=== PATIENT | male | born 1945 | race Caucasian/White ===

== ENCOUNTER → 2017-10-26 | Outpatient (CLI) | payer OTHER | LOC: BMCIMAGING 13:21 | PROVIDERS: ATTEND Internal Medicine | DX: Z03.89 Encounter for observation for other suspected diseases and conditions ruled out (principal) ==

== ENCOUNTER → 2017-11-03 | Outpatient (CLI) | payer OTHER | DX: R94.39 Abnormal result of other cardiovascular function study (principal); R06.02 Shortness of breath; I25.10 Atherosclerotic heart disease of native coronary artery without angina pectoris ==

== ENCOUNTER 2017-11-06 11:35 | Inpatient (IN) | payer OTHER ==
[2017-11-06] MEDS ORDERED: diphenhydrAMINE 25 MG CAP PO ONE ×2 (11:36→11:56)
[2017-11-06] MEDS ORDERED: FAMOTIDINE 20 MG TAB PO ONE (11:36)
[2017-11-06] MEDS ORDERED: NS 1,000 ML IV ONE (11:36)
[2017-11-06] MEDS ORDERED: ASPIRIN EC 325 MG TAB PO ONE ×2 (11:36→11:57)
[2017-11-06] MEDS ORDERED: DIAZEPAM 5 MG TAB PO ONE (11:36)
--- NOTE | 2017-11-06 11:53 | CPEKG ---
Heart Rate: 66 RR Interval: 909 P-R Interval: 156 QRSD Interval: 88 QT Interval: 408 QTC Interval: 428 P Sledge: 52 QRS [place]ledge: 25 T Wave [place]: -1 EKG Severity - BORDERLINE ECG - EKG Impression: SINUS RHYTHM EKG Impression: BORDERLINE T ABNORMALITIES, INFERIOR LEADS Electronically Signed By: Doni Jimenez 09-Nov-2017 21:09:16
[2017-11-06] MEDS ORDERED: FAMOTIDINE 20 MG TAB ONE (11:56)
[2017-11-06] MEDS ORDERED: DIAZEPAM 5 MG TAB ONE (11:57)
[2017-11-06 12:11] LABS: PLATELET COUNT 275 10^3/uL (150-400)
[2017-11-06] MEDS ORDERED: IOPAMIDOL (ISOVUE-370) 150 ML BTL IV ONE (12:16)
[2017-11-06] MEDS ORDERED: fentaNYL 100 MCG/2 ML INJ ONE ×2 (12:16→13:52)
[2017-11-06] MEDS ORDERED: LIDOCAINE 1% 300 MG/30 ML SDV ONE (12:16)
[2017-11-06] MEDS ORDERED: MIDAZOLAM 2 MG/2 ML VIAL ONE ×2 (12:16→13:52)
[2017-11-06 12:24] LABS: INR 1.02 (0.83-1.16); PROTIME(PATIENT) 13.6 SEC (12.0-15.0)
--- NOTE | 2017-11-06 13:09 | PDHPUP ---
History & Physical Update H&P update statement: This history and physical update is based on an assessment of the patient which was completed after admission or registration (within 24 hours), but prior to the surgery/procedure. 72 year old male with CAD on calcium score, with abnormal ETT coupled with complaints of increasing sob and yu. H&P update: H&P reviewed & patient examined, no change in patient's condition since H&P completed
--- NOTE | 2017-11-06 13:09 | PDPROPOC ---
Sedation Plan of Care Sedation Plan of Care: vital signs stable, mental status noted, patient educated of risks, benefits, alternatives, patient can tolerate sedation ASA Classification: ASA 2 Planned drugs: fentanyl, midazolam Mallampati Score: Class 2 Mallampati Reference Image: Patient passed 3-3-2 rule?: Yes
[2017-11-06] MEDS ORDERED: OXYCODONE/APAP 5/325 TAB PO PRN (14:53)
[2017-11-06] MEDS ORDERED: HYDROCODONE/APAP 5/325 TAB PO PRN (14:53)
[2017-11-06] MEDS ORDERED: ATROPINE SULFATE 1 MG/10 ML SYR IVP PRN (14:53)
[2017-11-06] MEDS ORDERED: NITROGLYCERIN 0.4 MG BTL SL PRN (14:53)
[2017-11-06] MEDS ORDERED: ONDANSETRON 4 MG/2 ML VIAL IVP PRN (14:53)
--- NOTE | 2017-11-06 15:25 | CPIP ---
[f rep st] INVASIVE CARDIAC PROCEDURE DATE OF PROCEDURE: 11/06/2017 PROCEDURES: Diagnostic left heart catheterization: 1. Left heart catheterization. 2. Left coronary angiography. 3. Right coronary angiography. 4. Left ventriculogram. 5. Right common femoral artery angiography. INDICATION FOR PROCEDURE: New complaints of dyspnea on exertion, shortness of breath, exertional int olerance and fatigue, known history of coronary disease based on calcium score, and abnormal exercise treadmill with ST-segment depression. He did have a nuclear study as well. The imaging report from [facility] was not available for my review. DESCRIPTION OF PROCEDURE: After informed consent was obtained, the patient was brought to the [facility] catheterization lab where he was prepped and draped in a sterile fashion. Using 1% lidocaine, the right groin was anesthetized. Using the modified Seldinger technique with micropuncture technique, a 6-[place] catheter was placed i nto the right common femoral artery without complications. A JL45 catheter was used to take images o f the left coronary anatomy in multiple projections. JL45 catheter was exchanged over a guidewire fo r a JR4 catheter. JR4 catheter was used to take images of the right coronary artery in multiple proj ections. The JR4 catheter was removed over a guidewire. Angled pigtail catheter was used to cross t he aortic valve. Left ventriculogram was performed. LVEDP was assessed and aortic valve gradient wa s assessed on pull-back. Angled pigtail catheter was removed over a guidewire without complications. Femoral artery angiography were obtained demonstrating placement of catheter above the bifurcation of the right common femoral artery and below the inguinal ligament and was an appropriate site for cl osure with Angio-Seal. FINDINGS: 1. Left main. It bifurcates in left anterior descending and left circumflex coronary artery. There was 10% distal stenosis of the distal left main. 2. Left anterior descending demonstrated an 80%-90% ostial stenosis. There is mild luminal irregula rities in the mid and distal segment of the LAD. There was a 70%-80% ostial stenosis of the second d iagonal branch. 3. Circumflex vessel. 30% ostial stenosis, 70% stenosis of a moderate-sized first obtuse marginal b ranch. 4. The right coronary artery was a dominant vessel. There were significant disease throughout the m idportion of the right coronary artery with multiple segments of 80% stenosis. HEMODYNAMICS: LVEF 60% to 65%. LVEDP 14 mmHg. Aortic valve gradient 10 mmHg. CONCLUSION: Severe coronary artery disease with ostial left anterior descending disease, 70% obtuse marginal branch disease off the circumflex, and multiple segments of 80% stenosis in a dominant right coronary artery. I have reviewed these images with my interventional colleagues, Dr. Latham. I have also reviewed the se images with my surgical colleague, Dr. Wetzel. Would recommend patient pursue surgical correction of his coronary anatomy given the severity and location of his coronary artery disease, primarily his ostial left anterior descending lesion. PLAN: 1. Surgical consult. 2. Further plans pending on patient's willingness to pursue surgical revascularization. /[id number]/MODL
--- NOTE | 2017-11-06 17:13 | PDMN ---
Medical Necessity Medical necessity: Pt meets IP criteria per MD; est los >2 mn s/p cardiac cath w /severe CAD, ostrial L anterior disease, 70% marginal branch disease of circumflex & multiple segments of 80% stenosis in dominant R coronary artery; admit for Surgery consult w/possible intervention; per procedure note & order 11/06/17
--- NOTE | 2017-11-06 21:07 | GCON ---
[f rep st] CONSULTATION DATE OF CONSULTATION: 11/06/2017 REFERRING PHYSICIAN: Dr. Peña The patient is seen at the request of Dr. Peña with the patient's permission. IMPRESSION: 1. Unstable angina pectoris with severe 3-vessel disease and preserved left ventricular function function. 2. Mild obesity. 3. Moderate ethanol alcohol abuse. RECOMMENDATIONS: This gentleman should undergo coronary artery revascularization on a more urgent time line given his critical ostial lesion in his LAD, diffuse severe right coronary disease and ostial circumflex disease. He is adamantly opposed to surgical intervention, although he represents a less than 1% risk and I would utilize 2 internal mammary arteries. He prefers high risk stenting which would involve likely use of an Impella and is uncertain about whether he would want surgical back up in that situation , we would only offer him surgical backup if he was stable and coming to surgery in a stable nature. I spent approximately 4 5 minutes counseling the patient and his extensive family. CHIEF COMPLAINT: Crescendo anginal equivalent, now limiting most activities. He underwent diagnostic left heart catheterization by Dr. Peña today and was noted to have at least 80% to 90% ostial LAD lesion and a very large vessel. He also had diffuse disease in his right coronary and ostial circ and mid circumflex disease. Both noninterventional and interventional cardiology agreed that his best option was surgical intervention. MEDICAL HISTORY: Essentially unremarkable. SOCIAL HISTORY: He does drink 2 to 3 and occasionally 4 drinks per night. He has never had withdrawal or a known cirrhosis. 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 PHYSICAL EXAMINATION: This is a slightly overweight middle-aged gentleman lying supine in bed, accompanied by his family, very supportive, very well informed. HEENT: Normocephalic. PERRLA, EOMI. NECK: Without bruit, adenopathy, or thyromegaly. HEART: Rate is regular without murmur. LUNGS: Clear. ABDOMEN: Soft, nontender. Bowel sounds are active. RECTAL/GENITAL: Were deferred. NEUROLOGICALLY: Grossly intact. Pedal pulses are 2 plus. No edema. No varicosities. Cath report was reviewed. /[id number]/MODL MTDD
[2017-11-07 11:24] VITALS: BP 122/85
--- NOTE | 2017-11-07 11:30 | GDS ---
[f rep st] DISCHARGE SUMMARY INDICATION FOR ADMISSION: The patient is a 72-year-old gentleman with new complaints of exertional s hortness of breath, dyspnea on exertion, exertional intolerance and fatigue with an abnormal exercise treadmill stress test and a markedly abnormal calcium score, who presented for left heart catheteriz ation yesterday. HOSPITAL COURSE: Mr. Covarrubias is a pleasant 72-year-old gentleman with history as described above , who presented for outpatient elective diagnostic left heart catheterization. Left heart catheteriz ation demonstrated severe three-vessel coronary artery disease with ostial LAD stenosis, distal left main ostial circumflex disease, and severe diffuse disease within the mid dominant right coronary art gerry. No intervention was attempted. Patient was consulted by Surgery. In the setting of three-vessel cor onary artery disease with ostial LAD disease, it is recommended that he pursue surgical intervention. Images were reviewed by myself, Interventional Cardiology as well as Dr. Wetzel from CT Surgery. Al l 3 providers had recommended surgical procedure. Mr. Covarrubias initially refused surgery and now states he is agreeable to return later this week fo r surgery. He wishes to be discharged and plan for surgery later this week. I have recommended that he stay in the hospital and undergo surgery during this hospitalization. He refuses to do that at t his time. He has remained stable overnight. No complications. The right groin site is without hematoma or ecc hymosis. Distal pulses are intact. Vital signs are stable. PLAN: 1. The patient will be seen by CT Surgery to finalize plans for preoperative evaluation and surgical date. 2. After he has been seen by CT Surgery, he will be discharged home. 3. He will continue his outpatient medications. /[id number]/MODL
--- NOTE | 2017-11-07 11:47 | ASMTLACE ---
LACE Length of stay for Answers: Less than 1 day current admission Acuity / Level of Answers: Yes Care: Did the patient have an inpatient admission? Comorbidities - select Answers: Coronary Artery Disease all that apply # of Emergency department Answers: 0 visits in the last 6 months Score: 5 Date Signed: 11/07/2017 11:46 AM Electronically Signed By:Alejandra Montoya RN
--- NOTE | 2017-11-07 11:50 | ASMTCMCOM ---
CM Note CM Note Notes: Chart reviewed. Patient also seen in rounds. He is s/p angiogram and is medically cleared to go home. No needs identified. CM available should other needs arise. Plan: Home independently Date Signed: 11/07/2017 11:49 AM Electronically Signed By:Alejandra Montoya RN
== END 2017-11-07 12:57 | disposition home or self-care (01) | DRG 287 ==
LOC: FCATH 11:35 → F2W 15:27
PROVIDERS: ADMIT Thoracic Surgery (Cardiothoracic Vascular Surgery); ATTEND Internal Medicine Cardiovascular Disease
PROC: 4A023N7 Measurement of Cardiac Sampling and Pressure, Left Heart, Percutaneous Approach (ICD-10-PCS; principal; 2017-11-06)
PROC: B2111ZZ Fluoroscopy of Multiple Coronary Arteries using Low Osmolar Contrast (ICD-10-PCS; principal; 2017-11-06)
PROC: B2151ZZ Fluoroscopy of Left Heart using Low Osmolar Contrast (ICD-10-PCS; principal; 2017-11-06)
DX: I25.110 Atherosclerotic heart disease of native coronary artery with unstable angina pectoris (principal); E66.9 Obesity, unspecified; F10.10 Alcohol abuse, uncomplicated
CPT/HCPCS: C1760; J1200; J1644; J2250; J3010; Q9967

== ENCOUNTER 2017-11-08 10:15 | Inpatient (IN) | payer OTHER ==
--- NOTE | 2017-11-07 17:19 | PDCARPN ---
Cardiology Progress Note Chief Complaint: Fatigue, dyspnea Assessment/Plan: Assessment: 1. Three-vessel coronary artery disease with preserved LV ejection fraction 2. 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 I visited with him and his family. I have reviewed his angiogram films. I feel that it is appropriate that he have coronary artery bypass grafting rather than multivessel stenting. This option is available to him however I feel that CABG is a better option. Pros and cons of each were reviewed with them. I also strongly recommended that he have CABG prior to discharge home but he prefers to have the procedure done within the next week. Total time spent with patient was 30 min. 11/07/17 16:22 Subjective: Admitted with fatigue, exertional dyspnea, + stress test. Reviewed/Discussed With: family, hospitalist, multidisciplinary team Time Spent with Patient: greater than 25 minutes Time Spent with Patient: Greater than 25 minutes spent on this patients care, greater than 50% of time spent counseling, educating, and coordinating care regarding the above mentioned plan. - Physical Exam Cardiovascular: regular rate and rhythm, no murmurs Respiratory: clear to auscultate bilat ICD10 Worksheet Patient Problems: Problems Problem Status Onset Acute blood loss anemia Acute S/P CABG x 4 Acute ~11/08/17 CAD (coronary artery disease), [place] coronary artery Chronic
[2017-11-08] MEDS ORDERED: INSULIN REGULAR HUMAN 100 UNIT in NS 100 ML IV ONE (11:14)
[2017-11-08] MEDS ORDERED: LIDOCAINE 1% 5 ML SDV ID PRN (11:14)
[2017-11-08] MEDS ORDERED: MANNITOL 25% 12.5 GM/50 ML VIAL IVP ONE (11:14)
[2017-11-08] MEDS ORDERED: SODIUM BICARBONATE 20 MEQ, LIDOCAINE 1% 10 ML in NORMOSOL-R 1,000 ML MISC ONE (11:14)
[2017-11-08] MEDS ORDERED: CITRATE DEXTROSE SOLN 500 ML BAG MISC ONE (11:14)
[2017-11-08] MEDS ORDERED: PHENYLEPHRINE HCL 50 MG in NS 250 ML IV ONE (11:14)
[2017-11-08] MEDS ORDERED: MUPIROCIN 2% 22 GM OINT NS ONE (11:14)
[2017-11-08] MEDS ORDERED: ceFAZolin 2 GM/DEXTROSE 100 ML IV ONE (11:14)
[2017-11-08] MEDS ORDERED: AMINOCAPROIC ACID 5 GM/20 ML VIAL IV ONE (11:14)
[2017-11-08] MEDS ORDERED: NS 1,000 ML IV ONE (11:14)
[2017-11-08] MEDS ORDERED: niCARdipine/NACL 200 ML IV ONE (11:14)
[2017-11-08] MEDS ORDERED: NOREPINEPHRINE BITARTRATE 16 MG in NS 250 ML IV ONE (11:14)
[2017-11-08] MEDS ORDERED: VERAPAMIL 5 MG, NITROGLYCERIN 2.5 MG, HEPARIN 500 UNIT, SODIUM BICARBONATE 0.2 MEQ in L... MISC ONE (11:14)
[2017-11-08] MEDS ORDERED: LR 1,000 ML IV ONE (11:18)
[2017-11-08] MEDS ORDERED: LIDOCAINE 1% 2 ML INJ ONE (12:00)
[2017-11-08] MEDS ORDERED: VERAPAMIL 5 MG/2 ML VIAL ONE (13:53)
[2017-11-08] MEDS ORDERED: MINERAL OIL 10 ML VIAL ONE (13:53)
[2017-11-08] MEDS ORDERED: PAPAVERINE HCL 60 MG/2 ML SDV ONE (13:53)
[2017-11-08] MEDS ORDERED: MIDAZOLAM 2 MG/2 ML VIAL IVP ONE (14:16)
--- NOTE | 2017-11-08 14:25 | PDANEPAE ---
ANE History of Present Illness 3v CAD s/f CABG ANE Past Medical History - Cardiovascular History Hx Hypertension: Yes Hx Arrhythmias: No Hx Chest Pain: No Hx Coronary Artery / Peripheral Vascular Disease: Yes Hx CHF / Valvular Disease: No Hx Palpitations: No Cardiovascular History Comment: dyslipidemia - Pulmonary History Hx COPD: No Hx Asthma/Reactive Airway Disease: No Hx Recent Upper Respiratory Infection: No Hx Oxygen in Use at Home: No Hx Sleep Apnea: No - Neurologic History Hx Cerebrovascular Accident: No Hx Seizures: No Hx Dementia: No - Endocrine History Hx Diabetes: No - Renal History Hx Renal Disorders: No - Liver History Hx Hepatic Disorders: No - Neurological & Psychiatric Hx Hx Neurological and Psychiatric Disorders: No - Cancer History Hx Cancer: No - Congenital Disorder History Hx Congenital Disorders: No - GI History Hx Gastrointestinal Disorders: No - Chronic Pain History Chronic Pain: No - Surgical History Prior Surgeries: 5 knee, 2 shoulder, nose reconstruction, heart ablation ANE Review of Systems Review of Systems: - Exercise capacity METS (RN): 4 METS ANE Patient History - Allergies Allergies/Adverse Reactions: Xnzlyjf-Alq-Rne Reductase Inhibitor Allergy (Verified 02/09/14 08:59) - Home Medications Home medications: home medication list seen and reviewed Home Medications: Allopurinol [Allopurinol 300 MG (RX)] 300 mg PO DAILY 11/06/17 [Last Taken 11/07 11:00] Aspirin [Aspirin 81mg (*)] 81 mg PO DAILY 11/06/17 [Last Taken 11/07/17 11:00] Cyanocobalamin [Vitamin B12 (*)] 1,000 mcg PO DAILY 11/06/17 [Last Taken 11:00] Magnesium Oxide [Magnesium Oxide 400 mg (*)] 400 mg PO DAILY 11/06/17 [Last Taken 11/07/17 11:00] Valsartan [Diovan (*)] 320 mg PO DAILY 11/06/17 [Last Taken 11/07/17 11:00] amLODIPine BESYLATE [Norvasc 2.5 mg (*)] 2.5 mg PO DAILY 11/06/17 [Last Taken 11:00] - NPO status NPO Status: no food or drink >8 hours NPO Since - Liquids (Date): 11/07/17 NPO Since - Liquids (Time): 23:45 NPO Since - Solids (Date): 11/07/17 NPO Since - Solids (Time): 22:30 - Anes Hx Anes Hx: no prior problems - Smoking Hx Smoking Status: Never smoked - Alcohol Use Alcohol Use: Rarely - Family Anes Hx Family Anes Hx: none ANE Labs/Vital Signs - Vital Signs Blood Pressure: 172/96 Heart Rate: 67 Respiratory Rate: 16 O2 Sat (%): 94 Height: 185.42 cm Weight: 89.811 kg ANE Physical Exam - Airway Neck exam: FROM Mallampati Score: Class 2 Mouth exam: normal dental/mouth exam - Pulmonary Pulmonary: no respiratory distress - Cardiovascular Cardiovascular: regular rate and rhythym - ASA Status ASA Status: III ANE Anesthesia Plan Anesthesia Plan: general endotracheal anesthesia Lines/Monitors: arterial line, central line, YUMIKO (+/- YUMIKO)
[2017-11-08] MEDS ORDERED: DEXMEDETOMIDINE HCL 400 MCG in NS 100 ML IV SCH (14:30)
[2017-11-08] MEDS ORDERED: REMIFENTANIL HCL 1 MG VIAL ONE (14:36)
[2017-11-08] MEDS ORDERED: MIDAZOLAM 2 MG/2 ML VIAL ONE (14:36)
[2017-11-08] MEDS ORDERED: fentaNYL 250 MCG/5 ML INJ ONE (14:36)
[2017-11-08] MEDS ORDERED: DEXAMETHASONE 4 MG/ML VIAL ONE ×2 (14:37)
[2017-11-08] MEDS ORDERED: PHENYLEPHRINE HCL 100 MCG/ML SYR ONE (14:37)
[2017-11-08] MEDS ORDERED: ONDANSETRON 4 MG/2 ML VIAL ONE (14:37)
[2017-11-08] MEDS ORDERED: LIDOCAINE 2% 100 MG/5 ML SYR ONE ×2 (14:37→14:39)
[2017-11-08] MEDS ORDERED: PROPOFOL/EMULSION 500 MG/50 ML BOTTLE IV ONE (14:37)
[2017-11-08] MEDS ORDERED: ROCURONIUM 100 MG/10 ML VIAL ONE (14:37)
[2017-11-08] MEDS ORDERED: ALBUMIN 5% 250 ML BOTTLE IV ONE (14:38)
[2017-11-08] MEDS ORDERED: PROTAMINE SULFATE 50 MG/5 ML VIAL IVP ONE (14:38)
[2017-11-08] MEDS ORDERED: NA BICARBONATE 50 MEQ/50 ML VIAL ONE (14:39)
[2017-11-08] MEDS ORDERED: HEPARIN 10,000 UNIT/10 ML MDV (1,000 UNIT/ML) ONE (14:39)
[2017-11-08] MEDS ORDERED: MILRINONE/DEXTROSE/100 ML BAG IV ONE (14:39)
[2017-11-08] MEDS ORDERED: CALCIUM CHLORIDE 1 GM/10 ML INJ ONE (14:39)
[2017-11-08] MEDS ORDERED: DOPamine/DEXTROSE 400 MG/250 ML BAG IV ONE (14:39)
[2017-11-08] MEDS ORDERED: ADENOSINE 6 MG/2 ML VIAL ONE (14:40)
[2017-11-08] MEDS ORDERED: CITRATE DEXTROSE SOLN 500 ML BAG ONE (14:40)
[2017-11-08] MEDS ORDERED: niCARdipine/NACL/200 ML BAG IV ONE (14:40)
[2017-11-08] MEDS ORDERED: MAGNESIUM SULFATE 1 GM/2 ML VIAL ONE (14:40)
[2017-11-08] MEDS ORDERED: AMIODARONE HCL 150 MG/3 ML VIAL ONE (14:40)
[2017-11-08] MEDS ORDERED: methylPREDNISolone SOD SUCC 1 GM/8 ML VIAL ONE (14:40)
[2017-11-08] MEDS ORDERED: ceFAZolin 1 GM VIAL ONE (14:40)
[2017-11-08] MEDS ORDERED: NITROGLYCERIN/D5W 50 MG/250 ML BOTTLE IV ONE (14:41)
[2017-11-08] MEDS ORDERED: LIDOCAINE HCL 160 MG/4 ML LTA KIT TP ONE (14:41)
--- NOTE | 2017-11-08 15:21 | PDHPUP ---
History & Physical Update H&P update statement: This history and physical update is based on an assessment of the patient which was completed after admission or registration (within 24 hours), but prior to the surgery/procedure. *Delayed entry H&P update: no change in patient's condition since H&P completed
[2017-11-08] MEDS ORDERED: SUGAMMADEX SODIUM 200 MG/2 ML VIAL IVP ONE (18:03)
[2017-11-08] MEDS ORDERED: SODIUM CL NASAL 45 ML BTL EACHNARE PRN (18:22)
[2017-11-08] MEDS ORDERED: ONDANSETRON 4 MG/2 ML VIAL IVP PRN (18:22)
[2017-11-08] MEDS ORDERED: POLYETHYLENE GLYCOL 3350 17 GM PKT PO PRN (18:22)
[2017-11-08] MEDS ORDERED: MAGNESIUM HYDROXIDE 30 ML UDCUP PO PRN (18:22)
[2017-11-08] MEDS ORDERED: D50W 25 GM/50 ML SYR IVP PRN (18:22)
[2017-11-08] MEDS ORDERED: POTASSIUM Cl (KCl) 50 ML IV PRN (18:22)
[2017-11-08] MEDS ORDERED: PANTOPRAZOLE SODIUM 40 MG VIAL IVP ONE (18:22)
[2017-11-08] MEDS ORDERED: ACETAMINOPHEN 650 MG SUPP PR PRN (18:22)
[2017-11-08] MEDS ORDERED: ACETAMINOPHEN 325 MG TAB PO PRN (18:22)
[2017-11-08] MEDS ORDERED: ONDANSETRON DISINTEGRATING 4 MG TAB PO PRN (18:22)
[2017-11-08] MEDS ORDERED: LACTULOSE 20 GM/30 ML UDCUP PO PRN (18:22)
[2017-11-08] MEDS ORDERED: ALBUMIN 5% 250 ML IV PRN (18:22)
[2017-11-08] MEDS ORDERED: MEPERIDINE 25 MG/0.5 ML AMP IVP PRN (18:22)
[2017-11-08] MEDS ORDERED: BISACODYL 10 MG SUPP PR PRN (18:22)
[2017-11-08] MEDS ORDERED: CEPACOL LOZENGE PO PRN (18:22)
[2017-11-08] MEDS ORDERED: fentaNYL 100 MCG/2 ML INJ IVP PRN (18:22)
[2017-11-08] MEDS ORDERED: METOCLOPRAMIDE 10 MG/2 ML VIAL IVP PRN (18:22)
[2017-11-08] MEDS ORDERED: INSULIN REGULAR HUMAN 100 UNIT in NS 100 ML IV SCH (18:30)
[2017-11-08] MEDS ORDERED: NS 1,000 ML IV SCH (18:30)
[2017-11-08] MEDS ORDERED: niCARdipine/NACL 200 ML IV SCH (18:30)
--- NOTE | 2017-11-08 18:37 | GOP ---
[f rep st] OPERATIVE REPORT DATE OF OPERATION: 11/08/2017 SURGEON: Doni Wetzel DO REGULATORY AUDITOR: Ilda Timmons. ANESTHESIA: Juma Saldana MD. PREOPERATIVE DIAGNOSIS: Severe 3-vessel coronary artery disease. POSTOPERATIVE DIAGNOSIS: Severe 3-vessel coronary artery disease. PROCEDURE PERFORMED: 1. Coronary artery bypass grafting x4 with left internal mammary artery to the distal left anterior descending, right internal mammary artery to the lateral circumflex via the transverse sinus, sapheno us vein graft to the diagonal, and saphenous vein graft to the posterior descending artery. 2. Ligated left atrial appendage. 3. Endoscopic vein harvest by CHIQUITA Morgan. FINDINGS: DESCRIPTION OF PROCEDURE: Patient was brought to the operating room, intubated. Monitoring lines we re placed. He was prepped and draped in sterile classical manner. Sternotomy was performed. Both m ammaries were harvested. They were excellent 2.8-3 mm vessels with brisk flow. He was heparinized, cannulated in the standard fashion. Bypass was begun and cardioplegic arrest was obtained with anteg rade cardioplegia, topical hypothermia, and systemic cooling. Initially, the left atrial appendage was triply ligated with silk ties. We then proceeded with bring ing the right internal mammary artery behind the aorta through the transverse sinus through a lateral pericardial incision and grafting it to the lateral circumflex. This was tacked to the epicardium. We then performed grafting to the PDA which was a 2.8 mm to 3 mm vessel. It was good quality vein w hich was then brought off the ascending aorta in standard fashion. We then proceeded with grafting t he diagonal which was a 1.5 mm poor quality vessel with vein graft which was brought off the ascendin g aorta in standard fashion. We then placed a mammary to the distal LAD. It was tacked to the epica rdium. The cross-clamp was removed with suction on the ascending aortic vent. Spontaneous cardiac a ctivity was noted to resume. The patient was easily weaned from bypass and heparin was reversed with protamine. The cannula was removed and oversewn. Two ventricular pacing, 2 pleural, and 1 mediasti nal drain were placed. The thymic fat and pericardium were closed. Chest was closed in standard fas hion. Patient was returned to ICU in stable condition. /[id number]/MODL
--- NOTE | 2017-11-08 19:24 | CPEKG ---
Heart Rate: 56 RR Interval: 1071 P-R Interval: 188 QRSD Interval: 94 QT Interval: 472 QTC Interval: 456 P [place]: 60 QRS [place]: 18 T Wave [place]: 34 EKG Severity - NORMAL ECG - EKG Impression: SINUS RHYTHM Electronically Signed By: Doni Jimenez 09-Nov-2017 16:47:47
[2017-11-08] MEDS: ceFAZolin 2 GM/DEXTROSE 100 ML IV SCH (19:59)
[2017-11-08] MEDS ORDERED: KETOROLAC 30 MG/1 ML SDV IVP ONE (20:45)
[2017-11-08] MEDS: MUPIROCIN 2% 22 GM OINT NS SCH (21:00)
[2017-11-09] MEDS: HYDROCODONE/APAP 5/325 TAB PO PRN ×2 (00:03→05:49)
[2017-11-09] MEDS: ceFAZolin 2 GM/DEXTROSE 100 ML IV SCH ×3 (04:07→21:01)
[2017-11-09 04:29] LABS: PLATELET COUNT 143 10^3/uL (150-400)
[2017-11-09] MEDS: HEPARIN 5,000 UNIT/0.5 ML INJ SC SCH ×3 (05:12→21:01)
--- NOTE | 2017-11-09 07:31 | SOAPPROG ---
SOAP Progress Note Assessment/Plan: POD #1: CABGx4 (GARCIA-LAD, ALICIA-circ, SVG-diag, SVG-PDA), ligation left atrial appendage, EVH L CAD s/p CABGx4 - BB/ASA/statin for secondary prevention when appropriate - Transfer to PCU Acute blood loss anemia - Stable without need for transfusions Subjective: Denies pain/SOB. Objective: Vital Signs Temp Pulse Resp BP Pulse Ox 36.5 C 68 19 132/65 H 98 11/09/17 04:00 11/09/17 06:00 11/09/17 06:00 11/09/17 06:00 11/09/17 06:00 Laboratory Results 11/09/17 04:10 11/09/17 04:10 11/08/17 11/09/17 11/10/17 05:59 05:59 05:59 Intake Total 1304 Output Total 1565 Balance -261 Physical Exam - Physical Exam General Appearance: WD/WN, alert, no apparent distress EENT: No scleral icterus (R), No scleral icterus (L) Neck: normal inspection Respiratory: No respiratory distress Cardiac/Chest: regular rate, rhythm Abdomen: non-tender, soft, No distended Skin: normal color, warm/dry Extremities: No pedal edema Neuro/Psych: no motor/sensory deficits, alert, normal mood/affect, oriented x 3 ICD10 Worksheet Patient Problems: Problems Problem Status Onset Acute blood loss anemia Acute S/P CABG x 4 Acute ~11/08/17 CAD (coronary artery disease), [place] coronary artery Chronic
[2017-11-09] MEDS ORDERED: ASPIRIN 81 MG CHEWABLE TAB PO SCH (09:00)
[2017-11-09] MEDS: MUPIROCIN 2% 22 GM OINT NS SCH ×2 (09:25→21:06)
[2017-11-09] MEDS: PANTOPRAZOLE SODIUM 40 MG TAB PO SCH (09:25)
[2017-11-09] MEDS: ASPIRIN 81 MG CHEWABLE TAB PO SCH (09:25)
--- NOTE | 2017-11-09 11:59 | PDMN ---
Medical Necessity Medical necessity: IP surgery per [facility] cpt 47343 CABG x 4
--- NOTE | 2017-11-09 14:05 | ASMTCASEMG ---
Living Arrangements What is your living Answers: With Spouse arrangement? Who do you live with? Type Of Residence What kind of residence do Answers: House you live in? Discharge Plan Comments Coordination Status Comments Notes: Pt is a 72 y/o man admitted for a coronary artery bypass grafting x4 with Dr. Wetzel. PT is recommending HC. OT has been ordered and awaiting recommendations. CM to follow up w/ the [facility] team. ' Plan: TBD Date Signed: 11/09/2017 02:04 PM Electronically Signed By:TANVIR Reynoso
[2017-11-09] MEDS ORDERED: oxyCODONE IR 5 MG TAB PO ONE (14:30)
[2017-11-09] MEDS ORDERED: oxyCODONE IR 5 MG TAB PO PRN (15:02)
[2017-11-09] MEDS ORDERED: METOPROLOL TARTRATE 25 MG TAB PO ONE (15:03)
[2017-11-09] MEDS: traMADol 50 MG TAB PO PRN (17:43)
[2017-11-09] MEDS ORDERED: KETOROLAC 30 MG/1 ML SDV IVP ONE (17:54)
[2017-11-09] MEDS: ALPRAZolam 0.25 MG TAB PO SCH ×2 (20:17→21:09)
[2017-11-10] MEDS: HYDROCODONE/APAP 5/325 TAB PO PRN ×3 (05:51→21:53)
[2017-11-10] MEDS: ceFAZolin 2 GM/DEXTROSE 100 ML IV SCH (05:53)
[2017-11-10] MEDS: HEPARIN 5,000 UNIT/0.5 ML INJ SC SCH ×3 (05:53→21:53)
--- NOTE | 2017-11-10 07:15 | SOAPPROG ---
SOAP Progress Note Assessment/Plan: Assessment: POD#2 CABGx4 (GARCIA-LAD, ALICIA-OM1, SVG-D2, SVG-PDA), prophylactic suture ligation left atrial appendage, EVH L thigh Sx multivessel CAD w preserved LV systolic fx - s/p CABG with BIMAs. Extubated in the OR. Stable early postop course. No dysrhythmias. No sig volume overload. Secondary prevention with ASA and BB. Hypolipidemic deferred to cards as statin allergy. Acute expected blood loss anemia - Stable. No transfusions needed. Hx HTN - Controlled w CCB and ARB. Postop control preferentially w BB. Plan: Chest tubes and TCPW removed. Cont metoprolol 25 mg BID. Start daily diuresis. Wean O2. Cont inc activity as tolerated. Dispo - Anticipate home without services in 2 days. 11/10/17 07:14 Subjective: Chest tube pain limiting comfort and mobility. Happy to be getting them out. Objective: Vital Signs Temp Pulse Resp BP Pulse Ox 37 C 88 20 132/81 H 93 11/10/17 04:00 11/10/17 04:00 11/10/17 04:00 11/10/17 04:00 11/10/17 04:00 Laboratory Results 11/10/17 06:00 11/10/17 06:00 11/09/17 11/10/17 11/11/17 05:59 05:59 05:59 Intake Total 1304 260 110 Output Total 1565 820 150 Balance -261 -560 -40 Adequate HR control. BP intermittently elev, likely reactive to pain. Min suppl O2 requirement. Balanced I/Os. +5 kg overall. CTOP at removal criteria. - Pending Discharge Pending Discharge Within 48 Hours: Yes Pending Discharge Date: 11/12/17 Pending Discharge Time: 11:00 Physical Exam - Physical Exam General Appearance: alert, no apparent distress Respiratory: crackles (bases), other (Blakes x 3 to bulb suction, serosang drainage. Tubes removed without incident) Cardiac/Chest: regular rate, rhythm, other (Sternotomy CDI. Vwire removed without difficulty.) Abdomen: non-tender, soft Skin: warm/dry Extremities: swelling (trace - 1+), other (LLE venotomy CDI) ICD10 Worksheet Patient Problems: Problems Problem Status Onset chronic disease mgmt/ transitional care Acute Acute blood loss anemia Acute S/P CABG x 4 Acute ~11/08/17 CAD (coronary artery disease), [place] coronary artery Chronic
[2017-11-10] MEDS: ALPRAZolam 0.25 MG TAB PO SCH ×2 (07:43→13:22)
[2017-11-10] MEDS: MUPIROCIN 2% 22 GM OINT NS SCH (08:25)
[2017-11-10] MEDS: METOPROLOL TARTRATE 25 MG TAB PO SCH ×2 (08:25→21:54)
[2017-11-10] MEDS: PANTOPRAZOLE SODIUM 40 MG TAB PO SCH (08:25)
[2017-11-10] MEDS: ASPIRIN 81 MG CHEWABLE TAB PO SCH (08:25)
[2017-11-10] MEDS: SENNOSIDES/DOCUSATE SODIUM TAB PO SCH ×2 (08:25→21:54)
--- NOTE | 2017-11-10 09:58 | ASMTCMCOM ---
CM Note CM Note Notes: Pt will most likely d/c in 2 days without d/c needs per recommendations from the [facility] team. No other needs identified at this time. CM available for changes. Plan: Independent Date Signed: 11/10/2017 09:58 AM Electronically Signed By:TANVIR Reynoso
[2017-11-10] MEDS: FUROSEMIDE 40 MG TAB PO SCH (10:48)
[2017-11-10] MEDS: CHOLECALCIFEROL VIT D3 1,000 UNITS TAB PO SCH (10:48)
[2017-11-10] MEDS: ALLOPURINOL 300 MG TAB PO SCH (10:48)
[2017-11-10] MEDS: CYANO/VITAMIN B12 1000 MCG TAB PO SCH (10:48)
[2017-11-10] MEDS: MAGNESIUM OXIDE 400 MG TAB PO SCH (10:49)
[2017-11-10] MEDS ORDERED: ALPRAZolam 0.25 MG TAB PO PRN (21:00)
[2017-11-11] MEDS: HEPARIN 5,000 UNIT/0.5 ML INJ SC SCH ×3 (06:08→22:11)
[2017-11-11] MEDS: ALLOPURINOL 300 MG TAB PO SCH (08:07)
[2017-11-11] MEDS: PANTOPRAZOLE SODIUM 40 MG TAB PO SCH (08:07)
[2017-11-11] MEDS: CHOLECALCIFEROL VIT D3 1,000 UNITS TAB PO SCH (08:08)
[2017-11-11] MEDS: CYANO/VITAMIN B12 1000 MCG TAB PO SCH (08:08)
[2017-11-11] MEDS: SENNOSIDES/DOCUSATE SODIUM TAB PO SCH (08:08)
[2017-11-11] MEDS: ASPIRIN 81 MG CHEWABLE TAB PO SCH (08:08)
[2017-11-11] MEDS: METOPROLOL TARTRATE 25 MG TAB PO SCH ×2 (08:08→22:12)
[2017-11-11] MEDS: MAGNESIUM OXIDE 400 MG TAB PO SCH (08:08)
[2017-11-11] MEDS: FUROSEMIDE 40 MG TAB PO SCH (08:08)
--- NOTE | 2017-11-11 09:27 | SOAPPROG ---
SOAP Progress Note Assessment/Plan: POD #3: CABGx4 (GARCIA-LAD, ALICIA-circ, SVG-diag, SVG-PDA), ligation left atrial appendage, EVH L thigh CAD s/p CABGx4 - BB/ASA/statin for secondary prevention when appropriate Acute blood loss anemia - Stable without need for transfusions DVT prophylaxis - heparin SQ/SCDs Disposition - Home Monday without services Subjective: Feels ready. Hopeful to get home tomorrow. Objective: Vital Signs Temp Pulse Resp BP Pulse Ox 37.1 C 84 16 128/70 H 96 11/11/17 08:00 11/11/17 08:00 11/11/17 08:00 11/11/17 08:00 11/11/17 08:00 Laboratory Results 11/10/17 06:00 11/11/17 06:10 11/10/17 11/11/17 11/12/17 05:59 05:59 05:59 Intake Total 260 860 Output Total 820 1600 Balance -560 -740 Physical Exam - Physical Exam General Appearance: WD/WN, alert, no apparent distress EENT: No scleral icterus (R), No scleral icterus (L) Neck: normal inspection Respiratory: No respiratory distress Cardiac/Chest: regular rate, rhythm Abdomen: non-tender, soft, No distended Skin: normal color, warm/dry Extremities: No pedal edema Neuro/Psych: no motor/sensory deficits, alert, normal mood/affect, oriented x 3 ICD10 Worksheet Patient Problems: Problems Problem Status Onset Acute blood loss anemia Acute S/P CABG x 4 Acute ~11/08/17 chronic disease mgmt/ transitional care Acute CAD (coronary artery disease), [place] coronary artery Chronic
[2017-11-11] MEDS: traMADol 50 MG TAB PO PRN (22:11)
[2017-11-12] MEDS: SENNOSIDES/DOCUSATE SODIUM TAB PO SCH ×2 (00:30→07:31)
[2017-11-12 07:15] VITALS: BP 131/75
[2017-11-12] MEDS: HEPARIN 5,000 UNIT/0.5 ML INJ SC SCH (07:34)
[2017-11-12] MEDS: CHOLECALCIFEROL VIT D3 1,000 UNITS TAB PO SCH (07:34)
[2017-11-12] MEDS: FUROSEMIDE 40 MG TAB PO SCH (07:35)
[2017-11-12] MEDS: METOPROLOL TARTRATE 25 MG TAB PO SCH (07:35)
[2017-11-12] MEDS: MAGNESIUM OXIDE 400 MG TAB PO SCH (07:35)
[2017-11-12] MEDS: CYANO/VITAMIN B12 1000 MCG TAB PO SCH (07:35)
[2017-11-12] MEDS: ALLOPURINOL 300 MG TAB PO SCH (07:35)
[2017-11-12] MEDS: ASPIRIN 81 MG CHEWABLE TAB PO SCH (07:35)
[2017-11-12] MEDS: PANTOPRAZOLE SODIUM 40 MG TAB PO SCH (07:36)
--- NOTE | 2017-11-12 07:46 | SOAPPROG ---
SOAP Progress Note Assessment/Plan: POD #4: CABGx4 (GARCIA-LAD, ALICIA-circ, SVG-diag, SVG-PDA), ligation left atrial appendage, EVH L thigh CAD s/p CABGx4 - BB/ASA/statin for secondary prevention when appropriate Acute blood loss anemia - Stable without need for transfusions DVT prophylaxis - heparin SQ/SCDs Disposition - Home today without services Subjective: Feels well. Ready to go home. Objective: Vital Signs Temp Pulse Resp BP Pulse Ox 36.8 C 80 18 131/75 H 90 L 11/12/17 07:11 11/12/17 07:11 11/12/17 07:11 11/12/17 07:11 11/12/17 07:11 Laboratory Results 11/10/17 06:00 11/11/17 06:10 11/11/17 11/12/17 11/13/17 05:59 05:59 05:59 Intake Total 860 1590 Output Total 1600 1200 1000 Balance -740 390 -1000 Physical Exam - Physical Exam General Appearance: WD/WN, alert, no apparent distress EENT: No scleral icterus (R), No scleral icterus (L) Neck: normal inspection Respiratory: No respiratory distress Cardiac/Chest: regular rate, rhythm Abdomen: non-tender, soft, No distended Skin: normal color, warm/dry Extremities: No pedal edema Neuro/Psych: no motor/sensory deficits, alert, normal mood/affect, oriented x 3 ICD10 Worksheet Patient Problems: Problems Problem Status Onset Acute blood loss anemia Acute S/P CABG x 4 Acute ~11/08/17 chronic disease mgmt/ transitional care Acute CAD (coronary artery disease), [place] coronary artery Chronic
--- NOTE | 2017-11-12 09:33 | PDDCSUM ---
Discharge Summary Discharge Summary: ADMISSION DATE: 11/08/17 DISCHARGE DATE: 11/12/17 DISCHARGE DIAGNOSES 1. CAD 2. Acute blood loss anemia PROCEDURES 11/08/17, Doni Wetzel: 1. CABGx4 (GARCIA-LAD, ALICIA-circ, SVG-diag, SVG-PDA) 2. Ligation left atrial appendage 3. EVH left thigh HOSPITAL COURSE BY PROBLEM LIST 1. CAD - stable s/p CABGx4. Continue beta-shawn, aspirin, and statin for secondary prevention. 2. Acute blood loss anemia - no transfusions needed. CONDITION Good DISPOSITION Home, self-care ACTIVITY Pt was instructed on sternal precautions, activity limitations, and which problems to call [facility] with. Please see Discharge Plan in chart for specifics. DISCHARGE MEDICATIONS Continue: Allopurinol [Allopurinol 300 MG (RX)] 300 mg PO DAILY Aspirin [Aspirin 81mg (*)] 81 mg PO DAILY Magnesium Oxide [Magnesium Oxide 400 mg (*)] 400 mg PO DAILY Cholecalciferol Vit D3 [Vitamin D3 (*)] 4,000 units PO DAILY Herbals/Supplements -Info Only 1 ea PO DAILY Loratadine [Claritin] 10 mg PO DAILY PRN Cyanocobalamin (Vitamin B-12) [Vitamin B-12] 1,000 mcg PO DAILY New: Acetaminophen [Tylenol 325mg (*)] 325 - 650 mg PO Q4HRS PRN Furosemide [Lasix 20 MG (*)] 20 mg PO DAILY #14 tab 11/12/17 [Last Taken Unknown ] Hydrocodone/APAP 5/325 [[place] 5/325 (*)] 1 - 2 tab PO Q4HRS PRN #20 Metoprolol Tartrate [Lopressor 25 mg (*)] 25 mg PO BID Potassium Chloride [Klor-Con 10] 10 meq PO DAILY Sennosides/Docusate Sodium [Senokot-S] 1 - 2 tab PO BID Stop: Gibran Perez PENDING STUDIES/LABS 1. CXR prior to surgical follow-up FOLLOW-UP 1. Doni Wetzel, 11/21/17, 10:00 AM 2. Rory Peña
--- NOTE | 2017-11-12 09:42 | ASDISCHSUM ---
Discharge Information Plan Status:Home with No Needs Medically Cleared to Leave:11/12/2017 Discharge Date:11/12/2017 CM D/C Disposition:Home, Routine, Self-Care ADT D/C Disposition:Home, Routine, Self-Care Projected Discharge Date:11/12/2017 Transportation at D/C: Discharge Delay Reason: Follow-Up Date:11/12/2017 Discharge Slot: Final Diagnosis: Placement Information Patient Contact Information Contact Name:MICHAEL Relationship: Address:[address] City:[place] Alternate Phone: State/Zip Code:[place] [address] Email: Financial Information Financial Class:Medicare Primary Plan Desc:MEDICARE INPATIENT Primary Plan Number:[id number] [facility] Secondary Plan Number:[id number] Assessment Information LACE LACE Length of stay for Answers: 3 days current admission Acuity / Level of Answers: Yes Care: Did the patient have an inpatient admission? Comorbidities - select Answers: Coronary Artery Disease all that apply Other Notes: HTN # of Emergency department Answers: 0 visits in the last 6 months Score: 9 Date Signed: 11/12/2017 09:41 AM Electronically Signed By:Alejandra Montoya RN [facility] Initial CM Assessment Living Arrangements What is your living Answers: With Spouse arrangement? Who do you live with? Type Of Residence What kind of residence do Answers: House you live in? Discharge Plan Comments Coordination Status Comments Notes: Pt is a 72 y/o man admitted for a coronary artery bypass grafting x4 with Dr. Wetzel. PT is recommending HC. OT has been ordered and awaiting recommendations. CM to follow up w/ the [facility] team. ' Plan: TBD Date Signed: 11/09/2017 02:04 PM Electronically Signed By:TANVIR Reynoso BC CM Progress Note CM Note CM Note Notes: Pt will most likely d/c in 2 days without d/c needs per recommendations from the [facility] team. No other needs identified at this time. CM available for changes. Plan: Independent Date Signed: 11/10/2017 09:58 AM Electronically Signed By:TANVIR Reynoso Intervention Information Intervention Type:*IM-Signed Date of Service:11/10/2017 03:35 PM Patient Type:Inpatient Staff Member:Dona Eid Hours: Discipline: Severity: Comment:
--- NOTE | 2017-11-12 09:44 | ASMTCMCOM ---
CM Note CM Note Notes: Chart reviewed. Medically cleared for discharge per [facility]. No needs identified. CM available should needs arise. Plan: Home independent with outpatient cardiac rehab. Date Signed: 11/12/2017 09:43 AM Electronically Signed By:Alejandra Montoya RN
--- NOTE | 2017-11-13 13:21 | PDHOMEO2F ---
Home Oxygen Face to Face Home Orders: I certify that a physician or a nurse practitioner or physician's special events assistant has had a [id number] encounter with this patient on the date of this order due to the diagnosis listed, which relates to the primary reason the patient requires home oxygen. Alternative treatments have been tried, or considered, and deemed ineffective. It is anticipated that supplemental oxygen will result in improvement with treatment. Home oxygen qualifying diagnosis: s/p CABG, SOB, atelectasis, pleural effusions , hypoxia SpO2 on room air (%): 84 Frequency of home oxygen needed: continuous Home oxygen liters per minute: 2 Home oxygen delivery device: nasal cannula Concentrator: Yes E-tanks for mobility and back up: Yes If ordering portable O2, is the patient mobile in the home?: Yes I certify that, based on these findings, the home oxygen is medically necessary for this patient for the following length of time. Length of time home oxygen needed: 1 month
--- NOTE | 2017-11-27 12:49 | GPROG ---
[f rep st] PROGRESS NOTE POSTANESTHESIA NOTE. DATE OF SERVICE: 11/09/2017 Date of postop visit was 11/09/2017, at about 9 in the morning. At that time, the patient was recove ring well from his anesthesia. He was upright in bed, having no significant pain. He was hemodynami jen stable, requiring minimal intervention. He was on 2 L of oxygen by nasal cannula and otherwise was doing quite well. He was planned for transfer to the transitional care unit later that day and had no apparent anesthesia complications. /[id number]/MODL
== END 2017-11-12 10:52 | disposition home or self-care (01) | DRG 236 ==
LOC: F2W 10:15 → F2N 18:11 → F2W 11-09 13:55
PROVIDERS: ADMIT Thoracic Surgery (Cardiothoracic Vascular Surgery); ATTEND Thoracic Surgery (Cardiothoracic Vascular Surgery)
DX: I25.10 Atherosclerotic heart disease of native coronary artery without angina pectoris (principal); D62 Acute posthemorrhagic anemia; I10 Essential (primary) hypertension; E78.5 Hyperlipidemia, unspecified
CPT/HCPCS: 82435-PO; 82565-PO; 82947-PO; 83605-PO; 84132-PO; 84295-PO; 84520-PO; 85014-PO; 97116-GP; 97161-GP; 97165-GO; 97530-GP; 97535-GO; G8978-GP-CJ; G8979-GP-CI; G8987-GO-CJ; G8988-GO-CI; J0153; J0282; J0690; J1100; J1265; J1644; J1815; J1885; J2001; J2150; J2250; J2260; J2270; J2370; J2405; J2440; J2704; J2720; J2930; J3010; J3475; J3480; J7060; P9041

== ENCOUNTER → 2018-01-24 | Outpatient (CLI) | payer OTHER | LOC: FIMAGING 17:21 | PROVIDERS: ATTEND Internal Medicine Cardiovascular Disease | DX: R68.83 Chills (without fever) (principal); R06.02 Shortness of breath; M79.1 Myalgia; Z95.1 Presence of aortocoronary bypass graft | CPT/HCPCS: 86141-90 ==